=== PATIENT | male | born 1955 | race Caucasian/White ===

== ENCOUNTER 2018-05-20 06:02 | Day surgery (SDC) | payer BC ==
[2018-05-17 11:14] VITALS: BMI 25.1
[2018-05-20] MEDS ORDERED: CEFAZOLIN/Water 2 GM/20 ML SYRINGE ONE (06:11)
[2018-05-20] MEDS ORDERED: Fentanyl 100 MCG/2 ML VIAL ONE ×2 (06:29→06:30)
[2018-05-20] MEDS ORDERED: Ophthalmic Irrigation Solution 0 ML ONE (06:32)
[2018-05-20] MEDS ORDERED: Bupivacaine/Epinephrine 0.25% 30 ML VIAL ONE (06:32)
[2018-05-20] MEDS ORDERED: Bacitracin Zinc Ointment 30 gm TUBE ONE (06:32)
[2018-05-20] MEDS ORDERED: EPINEPHrine 1 MG/ML AMP ONE (08:09)
[2018-05-20] MEDS ORDERED: HYDROcodone/Acetaminophen 5/325 mg Tablet ONE (11:10)
--- NOTE | 2018-05-20 11:36 | OP ---
DATE OF PROCEDURE: 05/20/2018 PREOPERATIVE DIAGNOSIS: Melanoma, right chest (0.4 mm in thickness). POSTOPERATIVE DIAGNOSIS: Melanoma, right chest (0.4 mm in thickness). PROCEDURE: 1. Wide excision melanoma right chest (9 cm in greatest diameter). (63370). 2. Split thickness skin graft, right chest (72 cm2). (01587). 3. Application of wound VAC, 72 cm2. INDICATIONS FOR PROCEDURE: The patient is a 62-year-old male who had a biopsy proven 0.4 mm thick me lanoma of the right chest. Additional biopsies were done to the surrounding suspicious area which wa s melanoma in situ. The entire area was excised with a 1 cm margin. PROCEDURE: Following induction of adequate anesthesia, the patient was prepped and draped in the usu al sterile fashion in supine position. The adequate margins were marked and excised down to and incl uding underlying fascia. The defect was too large to close primarily. It was partially marsupialize d with 3-0 PDS sutures followed by reconstruction with a split-thickness skin graft that was harveste d from the ipsilateral thigh and meshed to 1-1/2 to 1. The wound VAC was applied to secure the graft to its bed. The patient tolerated the procedure well.
[2018-05-20] MEDS ORDERED: Ondansetron HCl/PF 4 MG/2 ML Vial ONE (14:41)
[2018-05-20] MEDS ORDERED: PROPOFOL 200 MG/20 ML VIAL ONE (14:41)
[2018-05-20] MEDS ORDERED: Ketorolac Tromethamine 30 MG/ML VIAL ONE (14:41)
[2018-05-20] MEDS ORDERED: Dexamethasone 20 MG/5 ML VIAL ONE (14:41)
[2018-05-20] MEDS ORDERED: Lidocaine 1% PF 5 ML VIAL ONE (14:41)
== END 2018-05-20 11:42 | disposition home or self-care (01) ==
LOC: SDC 06:02
PROVIDERS: ATTEND Plastic Surgery
PROC: 0HR5X74 Replacement of Chest Skin with Autologous Tissue Substitute, Partial Thickness, External Approach (ICD-10-PCS; principal; 2018-05-20)
DX: C43.59 Malignant melanoma of other part of trunk (principal); Z79.899 Other long term (current) drug therapy
CPT/HCPCS: 88307; 93005; 93010; J0131; J0171; J1100; J1885; J2001; J2405; J2704; J3010

== ENCOUNTER 2018-05-31 10:35 | Day surgery (SDC) | payer BC ==
[2018-05-30 14:21] VITALS: BMI 26.5
[2018-05-31] MEDS ORDERED: CEFAZOLIN 2 GM/50 ML BAG ONE (13:31)
[2018-05-31] MEDS ORDERED: PROPOFOL 200 MG/20 ML VIAL ONE (13:49)
[2018-05-31] MEDS ORDERED: Ondansetron PF 4 MG/2 ML Vial ONE (13:49)
[2018-05-31] MEDS ORDERED: Lidocaine 1% PF 5 ML VIAL ONE (13:49)
[2018-05-31] MEDS ORDERED: Dexamethasone 20 MG/5 ML VIAL ONE (13:49)
[2018-05-31] MEDS ORDERED: Fentanyl 100 MCG/2 ML VIAL ONE (14:55)
[2018-05-31] MEDS ORDERED: Midazolam HCl 2 mg/2 ml Vial ONE (14:55)
[2018-05-31] MEDS ORDERED: Ophthalmic Irrigation Solution 0 ML ONE (14:56)
[2018-05-31] MEDS ORDERED: Bacitracin Zinc Ointment 30 gm TUBE ONE (14:56)
[2018-05-31] MEDS ORDERED: Bupivacaine/Epinephrine 0.25% 30 ML VIAL ONE (14:56)
[2018-05-31] MEDS ORDERED: Isosulfan Blue 50 MG/5 ML VIAL ONE (15:05)
--- NOTE | 2018-05-31 16:19 | NM ---
CHEST LYMPHOSCINTIGRAPHY: HISTORY: Melanoma right chest. FINDINGS: Planar imaging was performed following the perilesional injection of 400 mCi Technetium 99m filtered sulfur colloid in divided doses around the lesion in the right anterior chest. There is localization of increased tracer localization in the right axillary lymph nodes. No visuali zation of lymph nodes of the internal mammary, cervical, or left axillary lymph node chains is seen. No tracer localization is seen in the abdomen. IMPRESSION: [place] lymph node (S) in the right axilla. POS: SRAVANTHI
--- NOTE | 2018-05-31 23:11 | OP ---
PREOPERATIVE DIAGNOSIS: Melanoma, right chest. POSTOPERATIVE DIAGNOSIS: Melanoma, right chest. PROCEDURES: 1. Injection of Lymphazurin blue for lymphatic mapping. 2. [place] lymph node biopsy, right axilla. INDICATIONS FOR PROCEDURE: The patient is a 63-year-old white male who was originally diagnosed with a 0.4-mm thick melanoma of his right chest. A wide excision was done including the melanoma and surrounding melanoma in situ. The final pathology came back as a melanoma of 1.1 mm thickness. This changed the patient's stage as well as clinical therapy. He has already undergone reconstruction of his chest, but now needs sentinel lymph node biopsy to complete his therapy. Now, it was scheduled today. I will make sure he sees an oncologist in the near future. DESCRIPTION OF PROCEDURE: Following induction of adequate anesthesia, the patient was prepped and draped in the usual sterile fashion in a supine position. Lymphazurin blue was injected at the perimeter of the previous excision site. After this had adequate time to take effect, an axillary dissection incision was made based on the surrounding preoperative nuclear medicine ureña. Dissection was then guided by the Neoprobe to identify four different sentinel lymph nodes. After these were each meticulously dissected free and controlled for hemostasis, the wound was thoroughly irrigated, inspected for meticulous hemostasis, as well as the absence of radioactivity. After this was satisfactorily accomplished, the wound was closed with 3-0 Monocryl suture to collapse the space as well as 4-0 Monocryl suture at the skin. The patient tolerated the procedure well. BEN
== END 2018-05-31 18:37 | disposition home or self-care (01) ==
LOC: SDC 10:35
PROVIDERS: ATTEND Plastic Surgery
PROC: 07B50ZX Excision of Right Axillary Lymphatic, Open Approach, Diagnostic (ICD-10-PCS; principal; 2018-05-31)
DX: C43.59 Malignant melanoma of other part of trunk (principal); I10 Essential (primary) hypertension; Z79.899 Other long term (current) drug therapy; Z98.890 Other specified postprocedural states
CPT/HCPCS: 78195; 88307; 88342; A9541; J1100; J2001; J2250; J2405; J2704; J3010; Q9968